=== PATIENT | male | born 2000 | race Caucasian/White ===

== ENCOUNTER 2024-01-21 09:30 | Day surgery (SDC) | payer OTHER, SELFPAY ==
[2024-01-21] VITALS (8 sets, daily range): BP systolic 102–134; BP diastolic 57–86; BMI 27.0
--- NOTE | 2024-01-21 07:27 | W.SUR.PREOP ---
Pre-Operative Surgical Note
-
I have examined this patient prior to the performance of the scheduled procedure.
The patient's condition is unchanged from the time of the current History and
Physical and the patient is able to undergo the scheduled procedure.
[2024-01-21] MEDS: TYLENOL 1000 MG PO (10:09)
[2024-01-21] MEDS: NORMOSOL-R 1000 IV (10:14)
--- NOTE | 2024-01-21 13:46 | W.IMMPOSTOP ---
Surgical Immed Post Op Note
-
Primary Surgeon: West Samaniego MD
Assisting Surgeon: None
Pre-op Diagnosis: Right inguinal hernia, umbilical hernia
Post-op Diagnosis: Same
Procedure Performed:
1. Laparoscopic right inguinal hernia repair with mesh (TEP approach)
2. Open primary umbilical hernia repair
Anesthesia Type: General
Specimen / Cultures: None
Estimated Blood Loss: 7 cc
Complications: None
Operative Findings: Standard 3 port laparoscopic TEP approach. Markedly thickened indirect hernia sac reduced. Vas deferens and gonadal vessels identified and preserved. Floor reinforced with a large right Bard 3D max standard weight mesh. No
tacks used. After desufflation, we turned our attention to the umbilicus. The hernia sac was encircled and the overlying stalk was dissected off of the sac. The sac contained some preperitoneal fat which was removed. The defect measured 0.5 cm
in diameter and was closed with a single 0 PDS suture [id number].
--- NOTE | 2024-01-21 13:50 | OR.RPT ---
Operative Report
Operative Report
Patient Name: Brayden Whitt
: 2000
Date of Operation: 01/21/2024
Preoperative Diagnosis: Right inguinal hernia, umbilical hernia
Postoperative Diagnosis: Same
Procedure(s):
Laparoscopic right inguinal Hernia Repair with mesh, (TEP approach)
Open primary umbilical hernia repair
Surgeon(s):
Dr. Samaniego
Reception Centre Manager(s):
THAIS Nicole
Anesthesia: General
Estimated Blood Loss: 7 cc
Urine Output: None
Drains/Lines/Implants: Large 3D Max Bard Mesh
Specimens: None
Indication for surgery: The patient has a history of groin pain and noted on exam to have a right inguinal hernia as well as a small umbilical hernia. Following review of therapeutic options they elected to undergo a minimally invasive inguinal
hernia repair as well as an open umbilical hernia repair.
Operative Findings: Standard 3 port laparoscopic TEP approach. Markedly thickened indirect hernia sac reduced. Vas deferens and gonadal vessels identified and preserved. Floor reinforced with a large right Bard 3D max standard weight mesh. No
tacks used. After desufflation, we turned our attention to the umbilicus. The hernia sac was encircled and the overlying stalk was dissected off of the sac. The sac contained some preperitoneal fat which was removed. The defect measured 0.5 cm
in diameter and was closed with a single 0 PDS suture [id number].
Details of the operation:
After inducing general anesthesia and endotracheal intubation, the patient was prepped and draped in the supine position with both arms tucked. After infiltration with 0.25% Marcaine, a left periumbilical incision was made. Dissection was carried
down to the anterior sheath which was incised and the rectus muscle retracted laterally. An origin balloon was then inserted in through the posterior portion of the rectus into the preperitoneal space. This was insufflated under direct vision and
blunt dissection was therefore achieved in the preperitoneal space. The balloon was then removed and a 12mm Balloon trocar was placed. Two 5-mm ports were also placed in the midline below the camera port. Blunt dissection was used to dissect the
myopectineal orifice with care not to injure the epigastric vessels, gonadals or spermatic cord. Blunt dissection was used to identify the direct, indirect, and femoral spaces.
Right side:
The cord was inspected and an indirect hernia sac was noted and reduced. This was fairly thickened sac and was somewhat difficult to peel off of the underlying structures.
There was a small cord lipoma which was reduced.
There was no weakness in the direct space floor.
There was no femoral herniation.
A large 3D max mesh was then placed into position and positioned into the appropriate area to cover all 3 defects.
The area was then completely infiltrated with 30 cc of Marcaine without epinephrine (0.25%). The insufflation was slowly decreased and the mesh was assured to be in proper position with desufflation. Some intra-abdominal pneumoperitoneum was
evacuated via a small rent made in the posterior rectus sheath. The Joy trocar site was also closed with 0 PDS suture in a [id number] fashion. We then turned our attention to the umbilical hernia which was carefully encircled and then
dissected off of the overlying umbilical stalk. The hernia sac contained preperitoneal fat which was partially removed. Some pneumoperitoneum was evacuated through rent purposely made into the peritoneal cavity. The umbilical defect measured 0.5
cm so we elected not to place mesh here and instead just closed it with a [id number] 0 PDS suture. The umbilicus was then tacked down to the underlying fascia with a 3-0 Vicryl stitch. The skin sites were all then closed with running
subcuticular 4-0 Monocryl suture followed by dermabond. Inspection of the scrotum revealed both testes to be in position. The patient returned to the recovery room in stable condition. Sponge and instrument counts were correct. No specimen sent
to pathology
I was the attending physician and performed the procedure with assistance from the PUBLIC HEALTH DIETITIAN above. I was present for all portions of the case, excluding skin closure.
West Samaniego MD
[2024-01-21] MEDS: ZOFRAN 4 MG IV (14:50)
== END 2024-01-21 16:29 | disposition home or self-care (01) ==
LOC: SDS 09:30
PROVIDERS: ATTENDING PHYSICIAN Surgery
DX: K40.90 Unilateral inguinal hernia, without obstruction or gangrene, not specified as recurrent (principal); K42.9 Umbilical hernia without obstruction or gangrene; D17.6 Benign lipomatous neoplasm of spermatic cord
CPT/HCPCS: 49650; 49591; C1781

== ENCOUNTER → 2024-08-21 12:30 | Outpatient (REF) | payer OTHER, SELFPAY | LOC: DHSLP 12:30 | PROVIDERS: ATTENDING PHYSICIAN Otolaryngology; FAMILY PHYSICIAN Pediatrics | DX: G47.33 Obstructive sleep apnea (adult) (pediatric) (principal); R06.83 Snoring | CPT/HCPCS: 95800 ==

== ENCOUNTER 2025-05-03 21:23 | Emergency (ER) | payer OTHER, SELFPAY ==
[2025-05-03 21:24] VITALS: BP 167/93
--- NOTE | 2025-05-03 22:24 | ED.GENMED ---
History of Present Illness
General
Chief Complaint: Crisis Evaluation
Source: patient
Exam Limitations: none
Time Seen by Provider: 05/03/25 22:09
Nursing documentation reviewed up to this point in time: agreed with
History of Present Illness
History of Present Illness:
Note:
CHIEF COMPLAINT(S)
Suicidal ideation and self-harm attempt.
HISTORY OF PRESENT ILLNESS
The patient is a 25-year-old male presenting with a self-reported episode of suicidal ideation and a subsequent self-harm attempt. The patient described feeling overwhelmed, stressed, and anxious, leading to a non-lethal self-harm attempt with a
kitchen knife aimed at his wrist, which did not penetrate deeply. He conveyed that the action was impulsive, stating, 'I wasnt thinking about it' and later felt 'disgusted and upset' with himself. He expressed uncertainty about his actions and
indicated it was a reactive rather than premeditated event. The patient mentioned he had never felt like this before and does not take any medications. He also reports no history of smoking, alcohol, or drug use. The patient lives with others,
although exact living arrangements were not specified.
PAST MEDICAL AND SURIGICAL HISTORY
No significant past medical or surgical history reported.
SOCIAL HISTORY
The patient reports no smoking, alcohol, or drug use. No detailed family or social support system was mentioned.
REVIEW OF SYSTEMS
- Psychiatric: Reports feeling overwhelmed, stressed, anxious, and had an impulsive self-harm attempt. No previous episodes reported.
PHYSICAL EXAM
General: Anxious appearing, no acute distress.
Skin: Warm, dry.
Head: Normocephalic, atraumatic.
Neck: Supple, trachea midline.
Eye, Ears, Nose, Mouth, and Throat: Oral mucosa moist.
Cardiovascular: Normal peripheral perfusion, No edema.
Respiratory: Respirations are non-labored.
Gastrointestinal: Abdomen non-distended.
Back: Normal range of motion, Normal alignment.
Musculoskeletal: Normal range of motion, normal strength.
Neurological: Alert and oriented to person, place, time, and situation, No focal neurological deficit observed.
Psychiatric: Anxious, appropriate mood & affect.
PROBLEM LIST
- Acute Problems:
- Suicidal ideation
- Self-harm attempt
PLAN
The patient will be referred to a young adult mental health facility for further evaluation and care to address the self-reported suicidal ideation and self-harm attempt. Will provide a note for workplace communication to excusing his absence due to
the present health concerns. Ongoing monitoring to ensure safety and stability.
DIFFERENTIAL DIAGNOSIS
The Differential Diagnosis includes, in no particular order and is not limited to:
- Major depressive disorder
- Adjustment disorder with depressed mood
- Generalized anxiety disorder
- Post-traumatic stress disorder
- Bipolar disorder
- Personality disorder
- Acute stress disorder
- Substance-induced mood disorder
- Schizoaffective disorder
- Dysthymic disorder
Disposition:
SUMMARY OF ENCOUNTER
The patient is a 25-year-old male presenting with suicidal ideation. He reports a minimal attempt at self-harm by attempting to stab his left wrist, but no injury was evident. There are no signs of drug overdose or other forms of self-harm. The
management plan involved transferring the patient to an appropriate psychiatric facility for further evaluation and management of the suicidal ideation.
DISPOSITION
Transfer to a psychiatric facility for suicide ideation.
PLAN
The plan includes transferring the patient to a psychiatric facility for comprehensive mental health evaluation and management to address the suicidal ideation.
MEDICAL DECISION MAKING
- Complexity of Data Reviewed: The patients condition involves suicidal ideation with a minimal self-harm attempt. The Differential Diagnosis includes, but is not limited to: Major depressive disorder, Adjustment disorder with depressed mood,
Generalized anxiety disorder, Post-traumatic stress disorder, Bipolar disorder, Personality disorder, Acute stress disorder, Substance-induced mood disorder, Schizoaffective disorder, Dysthymic disorder.
- Data:
Category 1: Records reviewed include patient report and emergency department records.
Category 3: Management involved coordination for transfer to a psychiatric facility for further evaluation and intervention.
- Risk: Given the suicidal ideation, the decision for admission to a psychiatric facility was made to ensure the safety and stabilization of the patient. Escalation of care was necessary to provide the appropriate mental health support.
DIAGNOSIS
- Suicidal ideation (ICD-10 Code: R45.851)
- Adjustment disorder with depressed mood (suspected, ICD-10 Code: F43.21)
No emergency treatments were administered or medications prescribed during this visit. The primary focus was on ensuring the patients safety and initiating appropriate psychiatric care.
Phy Exam
Physical Exam
Physical Exam:
.
Course
Orders/Labs/Results
Orders:
Orders
05/03/25 21:27
1:1 Observation - Suicide/ Violent Behavior As Directed
Crisis Consult Urgent
Reason for Consult: SI
05/03/25 22:31
Urine Drug Abuse Screen Urgent
Date Specimen was Collected: 05/03/25
Time Specimen was Collected: 22:24
Vital Signs
Initial and Last Documented VS:
Initial Vital Signs
Temp Pulse Resp BP Pulse Ox
97.5 F 105 20 167/93 99
05/03/25 21:24 05/03/25 21:24 05/03/25 21:24 05/03/25 21:24 05/03/25 21:24
Last Documented Vital Signs
Temp Pulse Resp BP Pulse Ox
97.5 F 105 17 167/93 99
05/03/25 21:24 05/03/25 21:24 05/04/25 00:07 05/03/25 21:24 05/03/25 22:25
*Pulse Oximetry
SaO2: 99
Oxygen Mode of Delivery: Room air
Patient hypoxic: no
*Critical Care Note
Total Time (30-74mins, 75-104mins- exclusive of procedures): Not Applicable
ED Attending Note
-
Portions of this chart may have been created with voice recognition software.� Occasional wrong word or��sound alike� substitutions may have occurred due to the inherent limitations of voice recognition software.
Discharge Plan
Departure
Patient Disposition: Psych Facility
Date of Disposition: 05/03/25
Time of Disposition: 22:24
Patient Status:: Crisis
Patient with high blood pressure during this ER visit?: Yes
Condition: Good
Discharge Problem:
Suicidal ideation
Prescriptions:
No Action
acetaminophen [acetaminophen] 325 mg tablet
650 mg PO Q6HPRN PRN (Reason: mild pain) Qty: 14 0RF
ibuprofen 600 mg tablet
600 mg PO Q6H PRN (Reason: pain) Qty: 14 0RF
Interventions
Interventions:
*Risk Screen - Suicide Last Done: 05/03/25 21:24
*General Assessment Last Done: 05/03/25 21:24
*Neglect/Abuse Screening Last Done: 05/03/25 21:24
*ED COVID-19 Vaccine History Last Done: 05/03/25 21:53
*ED Influenza Vaccine History Last Done: 05/03/25 21:[address]
[facility] Fall Risk Assessment Tool Last Done: 05/03/25 21:53
ED-Psychological Assessment Last Done: 05/03/25 21:53
Discharge Date and Time
Print Language: [place]
== END 2025-05-04 01:39 ==
LOC: EMR 21:23
PROVIDERS: EMERGENCY PHYSICIAN Emergency Medicine
DX: R45.851 Suicidal ideations (principal); R03.0 Elevated blood-pressure reading, without diagnosis of hypertension; Z91.52 Personal history of nonsuicidal self-harm
CPT/HCPCS: 99285; 80306